=== PATIENT | female | born 1965 | race African-American/Black ===

== ENCOUNTER 2017-10-03 12:30 | Emergency (ER) | payer SELFPAY ==
[~2017-10-03] VITALS: Ht 154.9 cm; Wt 81.0 kg
[~2017-10-03 12:30] MED LIST: IBUP-22
[2017-10-03 13:09] VITALS: BP 121/82
== END 2017-10-03 18:21 | disposition home or self-care (01) ==
LOC: ER 14:46
DX: B34.9 Viral infection, unspecified (principal); M79.671 Pain in right foot; F17.200 Nicotine dependence, unspecified, uncomplicated; E78.00 Pure hypercholesterolemia, unspecified
CPT/HCPCS: 71045; 73630; 81025; 87804; 93005; 99285

== ENCOUNTER 2017-10-16 11:55 | Emergency (ER) | payer MEDICAID ==
[~2017-10-16] VITALS: Ht 154.9 cm; Wt 78.0 kg
[2017-10-16 17:25] VITALS: BP 136/73
== END 2017-10-16 17:26 | disposition home or self-care (01) ==
LOC: ER 14:49
DX: B35.3 Tinea pedis (principal); L03.031 Cellulitis of right toe; I10 Essential (primary) hypertension; E78.00 Pure hypercholesterolemia, unspecified
CPT/HCPCS: 81025; 99283

== ENCOUNTER 2017-12-15 20:23 | Emergency (ER) | payer SELFPAY ==
[~2017-12-15] VITALS: Ht 154.9 cm; Wt 82.0 kg
[2017-12-15] MEDS ORDERED: KETOROLAC 60MG/2ML VIAL IM ONE (23:45)
[2017-12-16 02:28] VITALS: BP 121/77
== END 2017-12-16 02:35 | disposition home or self-care (01) ==
LOC: ER 21:24
DX: M79.671 Pain in right foot (principal); M54.2 Cervicalgia; F17.200 Nicotine dependence, unspecified, uncomplicated; V49.9XXA Car occupant (driver) (passenger) injured in unspecified traffic accident, initial encounter; Y93.89 Activity, other specified; Y92.89 Other specified places as the place of occurrence of the external cause; Y99.8 Other external cause status
CPT/HCPCS: 72070; 73630; 81025; 96372; 99284; J1885

== ENCOUNTER 2019-09-21 10:02 | Emergency (ER) | payer SELFPAY ==
[~2019-09-21] VITALS: Ht 162.6 cm; Wt 86.0 kg
[2019-09-21] MEDS ORDERED: SODIUM CHLORIDE 0.9% 1,000 ML IV ONE (10:38)
[2019-09-21] MEDS ORDERED: KETOROLAC 30MG/ML VIAL IV STA (10:38)
[2019-09-21] MEDS ORDERED: ONDANSETRON HCL 4MG/2ML INJ IV STA (10:38)
[2019-09-21 11:15] LABS: BASOPHILS % 0.6 % (0.0-2.0); HEMATOCRIT. 45.5 % (36.0-48.0); HEMOGLOBIN. 15.5 g/dL (12.0-16.0); LYMPHOCYTES % 39.6 % (20.0-50.0); MEAN CORPUSCULAR HEMOGLOBIN 30.6 pg (28.0-32.0); MEAN CORPUSCULAR VOLUME 89.6 fL (81.0-99.0); MEAN PLATELET VOLUME 8.4 fl (7.4-10.4); NEUTROPHILS % 52.8 % (40.0-76.0); PLATELET 234 x1000/uL (130-400); RED BLOOD CELL COUNT 5.08 mill/uL (4.2-5.4); RED CELL DISTRIBUTION WIDTH 13.5 % (11.6-14.6)
[2019-09-21 11:21] LABS: CHLORIDE 105 mEq/L (98-107)
[2019-09-21 12:03] LABS: CLARITY URINE CLOUDY (CLEAR); COLOR URINE DK YELLOW (YELLOW); KETONES URINE 3+ (NEGATIVE); LEUKOCYTE ESTERASE URINE NEGATIVE (NEGATIVE); NITRITE URINE NEGATIVE (NEGATIVE); OCCULT BLOOD URINE NEGATIVE (NEGATIVE); PROTEIN URINE 1+ (NEGATIVE)
[2019-09-21 13:35] VITALS: BP 134/90
== END 2019-09-21 13:39 | disposition home or self-care (01) ==
LOC: ER 10:02
DX: B34.9 Viral infection, unspecified (principal)
CPT/HCPCS: 36415; 71045; 80053; 81003; 81025; 85025; 96374; 96375; 99284; J1885; J2405; J7030

== ENCOUNTER 2023-06-29 13:13 | Emergency (ER) | payer BC, OTHER ==
[~2023-06-29] VITALS: Ht 152.4 cm; Wt 95.0 kg
[2023-06-29 13:38] VITALS: BP 145/85; PULSE 94; RESP 18; TEMP 98; O2SAT 100
[2023-06-29 14:09] LABS: BASOPHILS % 0.7 % (0.0-2.0); EOSINOPHILS % 0.9 % (0.0-5.0); HEMATOCRIT. 44.9 % (36.0-48.0); HEMOGLOBIN. 15.1 g/dL (12.0-16.0); LYMPHOCYTES % 38.9 % (20.0-50.0); MEAN CORPUSCULAR HEMOGLOBIN 30.2 pg (28.0-32.0); MEAN CORPUSCULAR HGB CONC 33.6 g/dL (31.0-37.0); MEAN CORPUSCULAR VOLUME 89.9 fL (81.0-99.0); MONOCYTES % 6.3 % (2.0-8.0); NEUTROPHILS % 53.2 % (40.0-76.0); PLATELET 289 x1000/uL (130-400); RED BLOOD CELL COUNT 4.99 mill/uL (4.2-5.4); RED CELL DISTRIBUTION WIDTH 13.3 % (11.6-14.6)
[2023-06-29 14:32] LABS: CHLORIDE 108 mEq/L (98-107); INDEX HEMOLYSI 1 (1-3); INDEX ICTERIC 1 (1-4); INDEX LIPEMIC 1 (1-3); POTASSIUM 3.8 mEq/L (3.5-5.1); SODIUM 138 mEq/L (136-145); TROPONIN I HIGH SENSITIVITY 8 ng/L (<54)
[2023-06-29 14:41] LABS: ALANINE AMINOTRANSFERASE 33 IU/L (13-61); ALBUMIN 3.9 g/dL (3.4-5.0); ASPARTATE AMINOTRANSFERASE 15 IU/L (15-37); BILIRUBIN TOTAL 0.5 mg/dL (0.1-1.0); CALCIUM 9.3 mg/dL (8.5-10.1); CARBON DIOXIDE 26 mEq/L (21-32); CREATININE 0.8 mg/dL (0.6-1.3); GLUCOSE 91 mg/dL (70-105); UREA NITROGEN BLOOD 12 mg/dL (7-21)
== END 2023-06-29 18:00 | disposition home or self-care (01) ==
LOC: ER 14:25
DX: R42 Dizziness and giddiness (principal); D17.24 Benign lipomatous neoplasm of skin and subcutaneous tissue of left leg; Z98.890 Other specified postprocedural states
CPT/HCPCS: 36415; 71045; 80053; 84484; 85025; 93005; 99285